=== PATIENT | female | born 1945 | race Caucasian/White ===

== ENCOUNTER → 2016-09-03 | Outpatient (CLI) | payer MEDICARE, OTHER | LOC: GMA 16:58 | PROVIDERS: ATTEND Nurse Practitioner Acute Care | DX: N39.0 Urinary tract infection, site not specified (principal) ==

== ENCOUNTER → 2016-09-16 | Outpatient (CLI) | payer MEDICARE, OTHER ==
--- NOTE | 2016-09-17 10:23 | MAM ---
History: Well woman exam. Personal history of breast cancer status post left mastectomy. Date of exam: 09/16/2016 Services provided: Bilateral full field digital screening mammography. CAD, the images were reviewed with R2 computer aided detection. FINDINGS: Glandular tissue is scattered glandular contour. Comparison with 2012 exam. No dominant mass, architectural distortion or clustered microcalcification. IMPRESSION: Benign exam Recommendation: Routine annual mammography BIRAD CATEGORY: 2 BENIGN Electronically signed by: Hilary Cunha MD 09/17/2016 10:22 AM CDT
== END ==
LOC: MAMMO 08:58
PROVIDERS: ATTEND Nurse Practitioner Acute Care
DX: Z12.31 Encounter for screening mammogram for malignant neoplasm of breast (principal)

== ENCOUNTER → 2016-09-22 | Outpatient (CLI) | payer MEDICARE, OTHER | END | disposition home or self-care (01) | LOC: GMA 11:19 | PROVIDERS: ATTEND Nurse Practitioner Acute Care | DX: Z01.419 Encounter for gynecological examination (general) (routine) without abnormal findings (principal) ==

== ENCOUNTER → 2016-10-07 | Outpatient (CLI) | payer MEDICARE, OTHER | END | disposition home or self-care (01) | LOC: LAB.O 13:46 | PROVIDERS: ATTEND Urology | DX: R31.9 Hematuria, unspecified (principal) ==

== ENCOUNTER → 2016-10-08 | Outpatient (CLI) | payer MEDICARE, OTHER ==
--- NOTE | 2016-10-08 16:44 | CT ---
EXAM DESCRIPTION: Abdomen/Pelvis w/wo Contrast CLINICAL HISTORY: CHRONIC CYSTITIS COMPARISON: December 01, 2007 TECHNIQUE: Pre and postcontrast transaxial CT images of the abdomen and pelvis are obtained using renal stone imaging protocol. This exam was performed according to our departmental dose-optimization program, which includes automated exposure control, adjustment of the mA and/or kV according to patient size and/or use of iterative reconstruction technique . FINDINGS: The visualized lung bases show no acute findings. There is a moderate retrocardiac hiatal hernia. The pancreas, adrenal glands, and gallbladder are unremarkable. There is a small 10 mm hepatic cyst adjacent to the gallbladder fossa. Small hypodensity in the spleen is stable from previous exam. Mild atherosclerotic disease. Kidneys show no abnormal calcifications. No ureteral calcification or obstruction is seen. Urinary bladder is contracted and not well evaluated. Uterus and ovaries are unremarkable. The appendix is not identified. No small bowel obstruction is seen. Scattered diverticuli of the mainly descending to sigmoid colon are seen. There is mild bowel wall thickening and surrounding fat stranding in the left lower quadrant of the descending to sigmoid colon. No free intraperitoneal air or associated drainable fluid collections are seen. Osseous structures show no aggressive bony lesions. IMPRESSION: Colon diverticulosis. There is an area of likely early acute diverticulitis in the descending to sigmoid colon in the left lower quadrant. Consider follow-up imaging after a course of therapy. Urinary bladder is contracted and not well evaluated. Electronically signed by: Asim Mcdonough MD 10/08/2016 4:43 PM CDT
== END | disposition home or self-care (01) ==
LOC: CT 08:51
PROVIDERS: ATTEND Urology
DX: N30.20 Other chronic cystitis without hematuria (principal)

== ENCOUNTER 2016-10-24 11:56 | Emergency (ER) | payer MEDICARE, OTHER ==
[2016-10-24] MEDS ORDERED: ATROPINE 1 MG/10 ML SYG IV ONE (12:00)
[2016-10-24] MEDS ORDERED: SODIUM CHLORIDE 0.9% 1000ML 1,000 ML IVS ONE (12:00)
[2016-10-24] MEDS ORDERED: SODIUM CHLORIDE 0.9% 1000ML 1,000 ML IVS PRN (12:00)
[2016-10-24] MEDS ORDERED: ATROPINE SULFATE 0.5 MG/5 ML SYRINGE IV ONE ×2 (12:07→12:30)
[2016-10-24] MEDS: ATROPINE 1 MG/10 ML SYG IV ONE ×4 (12:10→12:20)
[2016-10-24] MEDS ORDERED: [UNRECOGNIZED DRUG - OTHER] ONE (12:47)
[2016-10-24] MEDS ORDERED: DEXTROSE 5% 250ML 250 ML ONE (12:48)
[2016-10-24] MEDS ORDERED: EPINEPHrine HCL MULTI-DOSE 5 MG in DEXTROSE 5% 250ML 250 ML IV SCH (13:00)
--- NOTE | 2016-10-24 13:01 | ED.PDOC ---
History of Present Illness - General Chief Complaint: Cardiovascular Problem Stated Complaint: Low heart rate Time Seen by Provider: 10/24/16 12:05 Source: patient, RN notes reviewed, Vital Signs reviewed, family Additional Information: Symptoms began about 30 to 45 min prior to arrival. Pt light headed, diaphoretic with chest pain. 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 Per patient and , she may have taken double dose of antihypertensives - diltiazem and metoprolol this am. - History of Present Illness Timing/Duration: 1/2 hour Severity: severe Location: substernal Activities at Onset: none Prior Chest Pain/Cardiac Workup: other - cardiac cath several years ago Improving Factors: nothing Worsening Factors: movement Nitro Today/Relief: no nitro taken today Aspirin Treatment Today: no aspirin today Associated Symptoms: chest pain, diaphoresis, shortness of breath Allergies/Adverse Reactions: Allergies Codeine Allergy (Verified 10/24/16 12:26) Vomitting Promethazine [From Phenergan] Adverse Reaction (Verified 10/24/16 12:26) Other Hallucinations Review of Systems - Review of Systems Constitutional: States: no symptoms reported EENTM: States: no symptoms reported Respiratory: States: see HPI Cardiology: States: see HPI, chest pain Gastrointestinal/Abdominal: States: no symptoms reported Genitourinary: States: no symptoms reported Musculoskeletal: States: no symptoms reported Skin: States: no symptoms reported Neurological: States: no symptoms reported Endocrine: States: no symptoms reported Hematologic/Lymphatic: States: no symptoms reported Past Medical History (General) - Patient Medical History Hx Stroke: No Hx Cardiac Disorders: Yes - high cholesterol Hx Congestive Heart Failure: No Hx Hypertension: Yes Hx Diabetes: No Hx Cancer: Yes - Breast - Vaccination History Hx Influenza Vaccination: Yes - 2015 Hx Pneumococcal Vaccination: Yes - 2013 - Social History Hx Tobacco Use: No - Quit 1990 - Female History Patient is a Female of Child Bearing Age (10 -59 yrs old): No Family Medical History - Family History Mother Living Status: Hx Family Cancer: Yes - mouth and throat at end of life Hx Family;Other: Alzheimer's Physical Exam - Physical Exam General Appearance: Anxious, Ill Appearing Eyes, Ears, Nose, Throat Exam: PERRL/EOMI, normal ENT inspection Neck: non-tender, full range of motion, supple Respiratory: lungs clear, no respiratory distress Cardiovascular/Chest: bradycardia Gastrointestinal/Abdominal: soft Extremity: normal range of motion, non-tender Neurologic: breast surgeon II-XII nml as tested, no motor/sensory deficits, alert, oriented x 3 Skin Exam: normal color Progress - Progress Progress: 10/24/16 13:06 Symtomatic bradycardia with diaphoresis. No response to atropine 0.5 mg IV x 4 and Epi drip 1-2 mcg/min. Pacer pads placed. Pt alert and responsive. - Results/Orders Results/Orders: 10/24/16 12:15 EKG STAT EKG STAT 10/24/16 13:00 EPINEPHrine HCL MULTI-DOSE 5 mg Dextrose 5% 250Ml [D5W 250ml] 250 ml IV PRN Laboratory Results - last 24 hr 10/24/16 10/24/16 12:23 12:28 WBC 10.1 RBC 4.52 Hgb 12.4 Hct 38.4 MCV 85.0 MCH 27.5 MCHC 32.3 L RDW 14.4 Plt Count 284 MPV 9.3 Absolute Neuts (auto) 5.80 Absolute Lymphs (auto) 3.10 Absolute Monos (auto) 0.80 Absolute Eos (auto) 0.30 Absolute Basos (auto) 0.10 Neutrophils % 57.2 Lymphocytes % 30.5 Monocytes % 7.7 Eosinophils % 3.3 Basophils % 1.3 Sodium 135 Potassium 4.6 Chloride 103 Carbon Dioxide 24 Anion Gap 12.6 BUN 12 Creatinine 0.98 BUN/Creatinine Ratio 12.2 Random Glucose 120 H Serum Osmolality 271.1 L Calcium 8.7 Phosphorus 3.5 Magnesium 2.0 Total Bilirubin 0.4 AST 23 ALT 11 Alkaline Phosphatase 68 Creatine Kinase 60 CK-MB (CK-2) 1.0 CK-MB (CK-2) % Not Reportable Troponin I < 0.02 Serum Total Protein 7.7 Albumin 3.8 Globulin 3.9 H Albumin/Globulin Ratio 1.0 L - EKG/XRAY/CT EKG: Delta - junctional rhythm at 38 bpm, persistent Departure - Departure Clinical Impression: Bradycardia Time of Disposition: 13:10 Disposition: Transfer to Hospital Condition: Poor Departure Forms: ED Discharge - Pt. Copy, Patient Portal Self Enrollment Referrals: Mohinder Glynn MD [Primary Care Provider] - 1-5 Days Transfer to Outside Facility - Transfer Information Accepting Provider:: Dr. Lam Accepting Facility: [facility] Reason for Transfer: required specialist not available - cardiology
[2016-10-24 17:05] VITALS: BP 110/54; TEMP 96.9; O2SAT 94
[2016-10-25] MEDS ORDERED: SODIUM CHLORIDE 0.9% 1000ML 1,000 ML IVS PRN (10:20)
== END 2016-10-24 13:10 | disposition short-term general hospital (02) ==
LOC: ER 11:56
DX: R00.1 Bradycardia, unspecified (principal); E78.00 Pure hypercholesterolemia, unspecified; I10 Essential (primary) hypertension; Z85.3 Personal history of malignant neoplasm of breast; Z88.6 Allergy status to analgesic agent; Z88.8 Allergy status to other drugs, medicaments and biological substances; Z87.891 Personal history of nicotine dependence
CPT/HCPCS: 36415; 80053; 82550; 82553; 83735; 84100; 84484; 85025; 93005; J7030; J7060

== ENCOUNTER → 2016-10-26 | Outpatient (CLI) | payer MEDICARE, OTHER | END | disposition home or self-care (01) | LOC: GMAH 15:03 | PROVIDERS: ATTEND Nurse Practitioner Acute Care | DX: N39.0 Urinary tract infection, site not specified (principal) ==

== ENCOUNTER → 2016-11-16 | Outpatient (CLI) | payer MEDICARE, OTHER | END | disposition home or self-care (01) | LOC: GMAH 16:27 | PROVIDERS: ATTEND Family Medicine | DX: I10 Essential (primary) hypertension (principal) ==

== ENCOUNTER → 2016-11-19 | Outpatient (CLI) | payer MEDICARE, OTHER | END | disposition home or self-care (01) | LOC: GMA 12:01 | PROVIDERS: ATTEND Nurse Practitioner Acute Care | DX: N39.0 Urinary tract infection, site not specified (principal) ==

== ENCOUNTER → 2017-02-25 | Outpatient (CLI) | payer MEDICARE, OTHER ==
--- NOTE | 2017-02-26 15:18 | CT ---
EXAM DESCRIPTION: Sinuses CLINICAL HISTORY: 71 years, Female, CHRONIC ETHMOIDAL SINUSITIS COMPARISON: FINDINGS: Axial scans. Reformatted images. This examination was performed according to our departmental dose optimization program, which includes automatic exposure control, adjustment of the MA and/or kV according to the patient size and/or use of iterative reconstruction technique. Extensive mucosal thickening in the left antrum which is more than half opacified. Air-fluid level present as well. Mucosal thickening extends into the area of the ostiomeatal complexes are occluded. There is extensive opacification in the adjacent ethmoid air cells some minimal mucosal thickening right ethmoid sinus. Sphenoid sinus clear. Mucosal thickening in the frontal sinuses particularly on the left. IMPRESSION: Extensive paranasal sinus disease probably on the left side. This involves the left antrum, ethmoid air cells and frontal sinuses. There appears to be an air-fluid level in the left antrum as well suggesting acute process superimposed on chronic sinusitis. The left ostiomeatal complex appears severely occluded by mucosal thickening Electronically signed by: Charles Watkins MD 02/26/2017 3:16 PM CDT
== END | disposition home or self-care (01) ==
LOC: FT 10:24
PROVIDERS: ATTEND Otolaryngology Otolaryngology/Facial Plastic Surgery
DX: J32.2 Chronic ethmoidal sinusitis (principal)

== ENCOUNTER 2017-12-11 11:30 | Emergency (ER) | payer MEDICARE, OTHER ==
[2017-12-11] MEDS ORDERED: NITROGLYCERIN 0.4 MG 25 EA TAB SL ONE ×3 (11:33→11:51)
[2017-12-11 11:53] VITALS: TEMP 97.9
--- NOTE | 2017-12-11 11:55 | ED.PDOC ---
History of Present Illness - General Chief Complaint: Cardiovascular Problem Stated Complaint: Chest pressure, SOB Time Seen by Provider: 12/11/17 11:30 Source: patient - History of Present Illness Initial Comments: CHEST PAIN, ONSET YESTERDAY, PRESSURE TYPE, 4-5/10 W/O RADIATION AND ASSOCIATED WITH MILD SOB. IT SEEMS TO BE MORE SUBSTERNAL . SHE HAS A HX OF A LEFT MASTECTOMY IN 1990 FOR CA OF THE BREAST. Timing/Duration: 24 hours Severity/Quality: moderate, pressure, tightness Location: substernal, central Chest Pain Radiation: no radiation Prior Chest Pain/Cardiac Workup: no prior chest pain, other - SHE EVIDENTLY HAD A HEART CATHETERIZATION YEARS AGO AND THEN IT WAS NORMAL. Improving Factors: nothing Worsening Factors: nothing Nitro Today/Relief: no nitro taken today Aspirin Treatment Today: unknown Associated Symptoms: denies symptoms Allergies/Adverse Reactions: Allergies Codeine Allergy (Verified 10/24/16 12:26) Vomitting Promethazine [From Phenergan] Adverse Reaction (Verified 10/24/16 12:26) Other Hallucinations Home Medications: Ambulatory Orders ALPRAZolam [Xanax] 1 mg PO TID PRN 10/24/16 Celecoxib [Celebrex] 200 mg PO DAILY 10/24/16 Clonidine HCl 0.1 mg PO DAILY 10/24/16 Diltiazem HCl 120 mg PO BID 10/24/16 Estrogens, Conjugated Vaginal [Premarin] 0.625 mg VAG .3XWEEK 10/24/16 Omeprazole 40 mg PO BID 10/24/16 Simvastatin 40 mg PO DAILY 10/24/16 Albuterol Sulfate 0.63 mg IN Q6H PRN 12/11/17 Bifidobacterium Infantis [Align] 4 mg PO DAILY 12/11/17 Ciprofloxacin [Cipro] 250 mg PO DAILY 12/11/17 Metoprolol Tartrate 50 mg PO BEDTIME 12/11/17 Nitroglycerin 0.4 mg Tab [Nitrostat] 0.4 mg SL .Q5M #20 bttl 12/11/17 Pantoprazole Sodium 40 mg PO DAILY 12/11/17 Review of Systems - Review of Systems Constitutional: States: no symptoms reported EENTM: States: no symptoms reported Respiratory: States: short of breath Cardiology: States: chest pain Gastrointestinal/Abdominal: States: no symptoms reported Genitourinary: States: no symptoms reported Musculoskeletal: States: no symptoms reported Skin: States: no symptoms reported Neurological: States: no symptoms reported Endocrine: States: no symptoms reported Hematologic/Lymphatic: States: no symptoms reported Past Medical History (General) - Patient Medical History Hx Stroke: No Hx Cardiac Disorders: Yes - hypercholesterolemia/hyperlipidemia Hx Congestive Heart Failure: No Hx Hypertension: Yes Hx Diabetes: No Hx Gastroesophageal Reflux: Yes - IBS; hiatal hernia Hx Cancer: Yes - L breast 1989 - mastectomy Hx MRSA: No - Vaccination History Hx Influenza Vaccination: Yes - 2016 Hx Pneumococcal Vaccination: Yes - 2016 Immunizations Up to Date: Yes - Prevnar 2016 - Social History Hx Tobacco Use: Yes - Quit 1994 Family Medical History - Family History Mother Living Status: Hx Family Cancer: Yes - mouth and throat at end of life Hx Family;Other: Alzheimer's Physical Exam - Physical Exam General Appearance: Anxious, Well Developed, Well Groomed, Well Hydrated, Well Nourished, Other - MILD DISTRESS Eyes, Ears, Nose, Throat Exam: PERRL/EOMI, normal ENT inspection Neck: non-tender, full range of motion, supple Respiratory: lungs clear, normal breath sounds, no respiratory distress, no accessory muscle use Cardiovascular/Chest: normal peripheral pulses, regular rate, rhythm, no edema, no gallop, no JVD, no murmur Peripheral Pulses: radial,right: 2+, radial,left: 2+ Gastrointestinal/Abdominal: normal bowel sounds, non tender, soft, no organomegaly, no pulsatile mass Rectal Exam: deferred Extremity: normal inspection, no pedal edema, no calf tenderness Neurologic: no motor/sensory deficits, normal mood/affect, oriented x 3 Skin Exam: normal color Lymphatic: no adenopathy Progress - Progress Progress: 12/11/17 14:32 THE PATIENT HAS MAINTAINED PAIN FREE SINCE SHE TOOK A NTG. I HAVE TROPONIN I X 2 AND NEGATIVE. SHE HAD A ETT BY DR. COELHO THREE YEARS AGO AND NORMAL. THE PATIENT WAS GIVEN AN OPTION TO STAY IN THE HOSPITAL FOR OSBERVATION BUT SHE WOULD LIKE TO GO HOME. A PRESCRIPTION FOR NTG WILL BE GIVEN TO THE PATIENT AND WILL DC HOME - Results/Orders Results/Orders: CXR IS NEGATIVE FOR ACUTE PROCESS Departure - Departure Clinical Impression: Chest pain in adult Time of Disposition: 14:35 Disposition: Discharge to Home or Self Care Condition: Good Departure Forms: ED Discharge - Pt. Copy, Patient Portal Self Enrollment Instructions: DI for Chest Pain Referrals: Mohinder Glynn MD [Primary Care Provider] - 1-2 Weeks MILO COELHO MD [Consulting Staff] - 1-2 Weeks Prescriptions: Nitroglycerin 0.4 mg Tab [Nitrostat] 0.4 mg SL .Q5M #20 bttl Home Medications: Ambulatory Orders ALPRAZolam [Xanax] 1 mg PO TID PRN 10/24/16 Celecoxib [Celebrex] 200 mg PO DAILY 10/24/16 Clonidine HCl 0.1 mg PO DAILY 10/24/16 Diltiazem HCl 120 mg PO BID 10/24/16 Estrogens, Conjugated Vaginal [Premarin] 0.625 mg VAG .3XWEEK 10/24/16 Omeprazole 40 mg PO BID 10/24/16 Simvastatin 40 mg PO DAILY 10/24/16 Albuterol Sulfate 0.63 mg IN Q6H PRN 12/11/17 Bifidobacterium Infantis [Align] 4 mg PO DAILY 12/11/17 Ciprofloxacin [Cipro] 250 mg PO DAILY 12/11/17 Metoprolol Tartrate 50 mg PO BEDTIME 12/11/17 Nitroglycerin 0.4 mg Tab [Nitrostat] 0.4 mg SL .Q5M #20 bttl 12/11/17 Pantoprazole Sodium 40 mg PO DAILY 12/11/17
--- NOTE | 2017-12-11 12:03 | RAD ---
Procedure: XR CHEST 1 VIEW Exam Date: 12/11/2017 11:52 AM CDT Ordering Provider: Alexandr Askew Clinical Indication: CHEST PAIN Comparison: None Findings: Lungs are clear. Heart size is within normal limits. No acute osseous abnormality. Surgical clips are seen in the left axillary region. Impression: No acute pulmonary process. Electronically signed by: Anamika Morales MD 12/11/2017 12:01 PM CDT
[2017-12-11] MEDS ORDERED: ASPIRIN (CHEWABLE) 81 MG TAB ONE (12:15)
[2017-12-11] MEDS ORDERED: ASPIRIN (CHEWABLE) 81 MG TAB PO ONE (12:15)
[2017-12-11 13:36] VITALS: BP 163/91; O2SAT 94
== END 2017-12-11 15:12 | disposition home or self-care (01) ==
LOC: ER 11:30
DX: R07.9 Chest pain, unspecified (principal); Z85.3 Personal history of malignant neoplasm of breast; Z90.12 Acquired absence of left breast and nipple; E78.00 Pure hypercholesterolemia, unspecified; E78.5 Hyperlipidemia, unspecified; I10 Essential (primary) hypertension; Z79.899 Other long term (current) drug therapy; Z87.891 Personal history of nicotine dependence

== ENCOUNTER → 2018-03-29 | Outpatient (CLI) | payer MEDICARE, OTHER ==
--- NOTE | 2018-03-29 16:33 | US ---
EXAM DESCRIPTION: Venous,Lower Extremity RT CLINICAL HISTORY: 72 years Female EDEMA COMPARISON: None. TECHNIQUE: Duplex and color Doppler imaging performed to evaluate the extremity deep venous structures. Compression imaging and augmentation imaging performed. FINDINGS: No thrombus is identified in the deep venous structures imaged. There is normal flow, compressibility, and augmentation throughout. IMPRESSION: No DVT is identified. Electronically signed by: Louis Raman 03/29/2018 4:31 PM [employer] [facility]
== END ==
LOC: RAD 16:02
PROVIDERS: ATTEND Family Medicine
DX: R60.0 Localized edema (principal)

== ENCOUNTER → 2018-05-02 | Outpatient (CLI) | payer MEDICARE, OTHER | LOC: GMAH 16:40 | PROVIDERS: ATTEND Family Medicine | DX: E53.8 Deficiency of other specified B group vitamins (principal); F03.90 Unspecified dementia, unspecified severity, without behavioral disturbance, psychotic disturbance, mood disturbance, and anxiety; N39.0 Urinary tract infection, site not specified ==

== ENCOUNTER → 2018-05-03 | Outpatient (CLI) | payer MEDICARE, OTHER ==
--- NOTE | 2018-05-03 11:42 | CT ---
EXAM DESCRIPTION: Head CLINICAL HISTORY: UNSPECIFIED DEMENTIA COMPARISON: Previous CT sinuses February 25, 2017, previous CT head August 27, 2011 TECHNIQUE: Noncontrast head CT was performed with routine protocol. FINDINGS: Normal corral-white matter differentiation. Ventricles and sulci are prominent consistent with age-related cerebral volume loss. Temporal horns of lateral ventricles are not enlarged. Normal proportional thickness of the cortex in the mesial temporal lobes. Low density areas in the white matter are consistent with chronic microvascular ischemic changes. Old lacunar infarcts in the anterior limb right internal capsule and left subinsular white matter. No high density hemorrhage, focal edema or shift of the midline. No sulcal effacement. Normal orbital contents. Basilar cisterns appear clear. Intact calvarium with no fracture or lytic lesion. Normal aeration of tympanic cavities and mastoid air cells. No fluid levels in the paranasal sinuses. Skull base appears intact. Symmetrical internal auditory canals. Coronal and sagittal reformatted images confirm the findings. Partially empty sella is incidentally noted. Compared to previous study February 25, 2017, no change is seen. Compared to head CT August 27, 2011, cerebral volume loss and senescent changes show evidence of mild progression. IMPRESSION: No acute intracranial pathologic process. This exam was performed according to our departmental dose-optimization program, which includes automated exposure control, adjustment of the mA and/or kV according to patient size and/or use of iterative reconstruction technique. Total DLP equals 752.48 mGycm. Electronically signed by: Hero Ernandez MD 05/03/2018 11:41 AM [facility]
== END ==
LOC: CT 10:30
PROVIDERS: ATTEND Family Medicine
DX: F03.90 Unspecified dementia, unspecified severity, without behavioral disturbance, psychotic disturbance, mood disturbance, and anxiety (principal)

== ENCOUNTER → 2018-09-19 | Outpatient (CLI) | payer MEDICARE, OTHER ==
--- NOTE | 2018-09-19 14:18 | RAD ---
EXAM: Pelvis and hip CLINICAL HISTORY: Pain COMPARISON STUDY: None TECHNICAL: AP pelvis FINDINGS: The pelvic ring is intact and negative. Both hips are in anatomic alignment. There is no identifiable fracture. There is no osseous abnormality. There are no significant degenerative changes. Multiple pelvic phleboliths are present. IMPRESSION: Negative pelvis. Electronically signed by: Daljit Multani MD 09/19/2018 2:16 PM CDT
--- NOTE | 2018-09-19 14:20 | RAD ---
EXAM: Knee,Right Complete CLINICAL HISTORY: M25.561, M25.551 COMPARISON STUDY: None. TECHNICAL: 4 views of the right knee. FINDINGS: Views of the knee demonstrate no fracture or dislocation. There is no acute bone abnormality. Mild medial joint space loss is present. There are very small periarticular osteophytes along the medial compartment. There are minimal degenerative changes of the patellofemoral joint. A small joint effusion is present. IMPRESSION: 1. Mild osteoarthritic changes of the right medial compartment and patellofemoral joint. 2. Small right knee joint effusion. Electronically signed by: Daljit Multnai MD 09/19/2018 2:17 PM CDT
== END ==
LOC: RAD 08:43
PROVIDERS: ATTEND Orthopaedic Surgery
DX: M17.11 Unilateral primary osteoarthritis, right knee (principal); M25.551 Pain in right hip

== ENCOUNTER → 2019-03-30 | Outpatient (CLI) | payer MEDICARE, OTHER ==
--- NOTE | 2019-04-03 16:19 | MAM ---
EXAM DESCRIPTION: 3D Screening BILATERAL : Digital Mammography. CLINICAL HISTORY: 73 years Female ANNUAL SCREENING left breast cancer and mastectomy 1990.. Lifetime risk of developing breast cancer (Tyrer-Cuzick model)(%): Calculated due to personal history of breast cancer. COMPARISON: 2-D digital screening right breast 16 September 2016.. TECHNIQUE: Right breast CC and MLO projection full-field images, digital tomosynthesis mammographic technique. Right breast digital 2-D full-field MLO images. CAD not available for tomosynthesis or 2-D images. FINDINGS: Right breast parenchymal density pattern is: Scattered areas of fibroglandular density. No skin thickening or nipple retraction. Benign type calcifications mid right breast. Stable well-defined nodules possibly lymph nodes anterior middle right breast. Medial right skin mole. No new focal, stellate mass or density, focal asymmetry , and no suspicious microcalcifications right breast IMPRESSION: Benign exam. BIRAD CATEGORY: 2 BENIGN FINDINGS. RECOMMENDATIONS: FOLLOW UP: Routine digital right breast mammographic screening, one year interval from March 2019. Written communication explaining the IMPRESSION and follow-up, will be mailed to the patient and referring health care provider. According to the [employer], yearly mammograms are recommended starting at age 40 and continuing as long as a woman is in good health. Any breast change noted on a breast self-exam should be reported promptly to the patient's healthcare provider. Breast MRI is recommended for women with an approximately 20-25% or greater lifetime risk of breast cancer, including women with a strong family history of breast or ovarian cancer and women who have been treated for Hodgkin's disease. A negative mammographic report should not delay tissue diagnosis in patients with significant clinical history or physical findings. Extremely dense breast tissue limits the sensitivity of digital mammography. Electronically signed by: Louis Anthony MD 04/03/2019 4:17 PM [facility]
== END ==
LOC: MAMMO 11:19
PROVIDERS: ATTEND Family Medicine
DX: Z12.31 Encounter for screening mammogram for malignant neoplasm of breast (principal)

== ENCOUNTER → 2019-04-28 | Outpatient (CLI) | payer MEDICARE, OTHER | LOC: GMA MATASK 12:46 | PROVIDERS: ATTEND Family Medicine | DX: R00.2 Palpitations (principal) ==

== ENCOUNTER → 2019-10-09 | Outpatient (CLI) | payer MEDICARE, OTHER | LOC: GMA MATASK 11:25 | PROVIDERS: ATTEND Family Medicine | DX: R63.4 Abnormal weight loss (principal); N39.0 Urinary tract infection, site not specified; R53.82 Chronic fatigue, unspecified; M25.50 Pain in unspecified joint ==

== ENCOUNTER → 2020-04-09 | Outpatient (CLI) | payer MEDICARE, OTHER | LOC: GMA MATASK 14:46 | PROVIDERS: ATTEND Family Medicine | DX: I10 Essential (primary) hypertension (principal) ==

== ENCOUNTER 2020-06-04 13:41 | Inpatient (IN) | payer MEDICARE, OTHER ==
--- NOTE | 2020-06-04 13:43 | HP ---
SUPERVISING PHYSICIAN: Ramez Mendoza MD CHIEF COMPLAINT: Abdominal pain. HISTORY OF PRESENT ILLNESS: This is a 74-year-old female who was directly admitted from Dr. Oliver's office due to diverticular abscess. She apparently has had a fever for about a month along with lower abdominal pain. Yesterday, she had a CT scan of the abdomen and pelvis which showed a diverticular abscess. It also showed constipation in the proximal colon. She also had some labs which showed white count 22,000, hemoglobin 11.4, hematocrit 35.4, platelet count 415, 3% bands. She also had a sodium 137, potassium 3.7, chloride 100, CO2 28, BUN 12, creatinine 0.67, glucose 104, calcium 9.2. Dr. Cornejo was consulted from Dr. Oliver's office as well as Dr. Anthony and the game plan is to percutaneously drain the abscess and place her on empiric antibiotics. She will be placed on Flagyl. At the time of examination, the patient is alert and oriented with no distress. Vital signs are acceptable so far. PAST MEDICAL HISTORY: 1. Hypertension. 2. Hyperlipidemia. 3. Gastroesophageal reflux disease. 4. Low back pain. 5. Depression. 6. Diverticulosis. 7. History of breast cancer and had mastectomy. 8. Pulmonary embolism several years ago. PAST SURGICAL HISTORY: 1. Left mastectomy. 2. section. 3. Colonoscopy which showed polyps and diverticulosis. MEDICATIONS: Please see medication reconciliation list once verified in the computer. ALLERGIES: PROMETHAZINE, CODEINE. FAMILY HISTORY: Father at age 38 of CVA. Mother at age 85 of Alzheimer's. SOCIAL HISTORY: She smoked a pack a day for 20 years and quit in 1994. No alcohol, no illicit drugs. REVIEW OF SYSTEMS: CONSTITUTIONAL: Positive for fever, chills and fatigue. No recent weight loss or weight gain. HEENT: No headaches, vision changes, ear pain, nasal congestion or throat pain. RESPIRATORY: No shortness of breath, cough, hemoptysis or pleuritic chest pain. CARDIOVASCULAR: No chest pain, palpitations or peripheral edema. GASTROINTESTINAL: Positive for abdominal pain. No nausea, vomiting, diarrhea, constipation. GENITOURINARY: No dysuria, frequency or flank pain. ENDOCRINE: No polydipsia, polyuria or polyphagia. No heat or cold intolerance. MUSCULOSKELETAL: Positive for low back pain, but no joint pain, joint swelling or muscle cramps. NEUROLOGIC: No syncope, paresthesias or seizures. PHYSICAL EXAMINATION: VITAL SIGNS: Blood pressure 145/65, heart rate 68, respiratory rate 16, temperature 97.1, oxygen saturation 94%. GENERAL: Ms. Hawley is a 74-year-old female in no active distress. NEUROLOGIC: The patient is alert. LUNGS: Clear to auscultation bilaterally. CARDIOVASCULAR: Regular rate and rhythm. Normal S1, S2. ABDOMEN: Soft. Positive bowel sounds. She does have some tenderness to bilateral lower abdomen. EXTREMITIES: Lower extremities with no edema. Pulses 2+. Capillary refill is less than 2 seconds. LABORATORY: Labs and films are as discussed in history of present illness. IMPRESSION: 1. Diverticulitis with diverticular abscess. 2. Abdominal pain secondary to #1. 3. Possible sepsis secondary to #1. 4. Hypertension. 5. Hyperlipidemia. 6. Depression. PLAN: The patient will be admitted and placed on empiric antibiotics with Levaquin and Flagyl. She is planned for a percutaneous drain of the abscess tomorrow. Dr. Cornejo will be managing that aspect. We will recheck labs today as well including lactate to ensure no significant sepsis. We will hold off on DVT prophylaxis given she is having a procedure tomorrow. We will restart home medications once verified in the computer. #[id number] MTDD
[2020-06-04] MEDS ORDERED: SODIUM CHLORIDE 0.9% (FLUSH) 10 ML SYG IV PRN (14:09)
[2020-06-04] MEDS ORDERED: metroNIDAZOLE IV PREMIX 500MG 100 ML IVPB ONE (14:34)
[2020-06-04] MEDS: IV SET AND CAP CHANGE INJ INJ SCH (14:35)
[2020-06-04] MEDS: metroNIDAZOLE IV PREMIX 500MG 500 MG in PREMIX BAG 1 BAG IVPB SCH ×2 (14:35→22:45)
[2020-06-04] MEDS: LACTATED RINGERS 1,000 ML IVS PRN (16:49)
[2020-06-04] MEDS: levoFLOXacin 750MG IV 750 MG in PREMIX BAG 1 BAG IVPB SCH (17:00)
[2020-06-04] MEDS ORDERED: ONDANSETRON INJ 4 MG/2 ML VIAL ONE (17:33)
[2020-06-04] MEDS ORDERED: ONDANSETRON INJ 4 MG/2 ML VIAL IV PRN (18:22)
--- NOTE | 2020-06-04 18:39 | CONS ---
DATE OF CONSULTATION: 06/04/20 HISTORY OF PRESENT ILLNESS: This is a 74 year-old woman admitted with diverticular abscess. She has been ill for a while. Per the patient's history, she has had some abdominal pain ongoing and other problems. She has been treated recently for a lung infection and a urinary tract infection. Her pain continued and had worsened. Her primary care doctor got a CAT scan that revealed diverticulitis and abscess. She has had diverticulosis in the past but no history of diverticulitis. She had not noticed any particular changes in her stool. The abdominal pain has been progressive and again recently worse. At this point, she stated she has had intermittent fevers. No chills. No headache. No respiratory complaints at this time. No known coronary disease. Abdomen as above. Urine: She has some slight frequency and slight dysuria. Bowels: Again, have been normal. Last BM was this morning. Extremities: No complaints. PAST MEDICAL HISTORY: 1. Hypertension. 2. Denies diabetes. 3. History of pulmonary embolism after a Shannon procedure time back. 4. History of breast cancer and mastectomy on the left. 5. History of pulmonary embolism. PAST SURGICAL HISTORY: 1. Left mastectomy. 2. section. 3. Again the patient mentions specifically lap Shannon. I do not see scars, but mentioning that makes me think she had one. CURRENT MEDICATIONS: Please see list that is for as above. She denies any blood thinners. ALLERGIES: NO ANTIBIOTIC ALLERGIES. SHE HAS AN ALLERGY TO CODEINE FOR THE RECORD. FAMILY HISTORY: Cerebrovascular accident. SOCIAL HISTORY: She quit smoking in 1994. Denies any drug or alcohol abuse. REVIEW OF SYSTEMS: As above. PHYSICAL EXAMINATION: VITAL SIGNS: T max is 100, heart rate 70, blood pressure 151/80. She is on IV fluid and has received her first dose of IV antibiotics. GENERAL: Today, she is conscious, alert and well oriented, on the phone. Appears comfortable. HEENT: Normal. Sclera are anicteric. NECK: Supple. No adenopathy or obvious thyromegaly. CHEST: Clear. Equal bilaterally. HEART: Regular rate and rhythm. ABDOMEN: Soft. It is tender in the left lower quadrant with palpable mass. No diffuse peritonitis. No rebound or guarding away from the infection. BACK: No CVA tenderness. EXTREMITIES: No clubbing, cyanosis or edema. Extremities are warm. LABORATORY: White count is 23, hematocrit 30, platelets 353. Electrolytes: Sodium 133, potassium 3.3, creatinine 0.65. LFTs are normal. Lactic acid 0.9. CAT scan I reviewed earlier. There is evidence of diverticulitis throughout the sigmoid colon with at least 2 abscesses felt to be amenable to drainage. IMPRESSION: A 74 year-old woman with acute diverticulitis with abscess. These abscesses appear amenable to drainage. She does not have evidence of diffuse peritonitis at this time and does not appear seriously ill or septic, so I agree with a drain placement. I discussed with the patient that antibiotics and the drain have a great chance of resolving her problem and she will not need surgery. If, however, it should get worse or persist, then surgery would be recommended which would involve a temporary colostomy without a doubt given the appearance on the CAT scan. #[id number] [facility]
[2020-06-05] MEDS: LACTATED RINGERS 1,000 ML IVS PRN ×2 (04:11→17:50)
[2020-06-05] MEDS ORDERED: ACETAMINOPHEN 325 MG TAB PO PRN (04:22)
[2020-06-05] MEDS: metroNIDAZOLE IV PREMIX 500MG 500 MG in PREMIX BAG 1 BAG IVPB SCH ×3 (06:04→22:33)
[2020-06-05] MEDS ORDERED: MAGNESIUM SULFATE PREMIX 2GM 2 GM in PREMIX BAG 1 BAG IVPB ONE (08:25)
[2020-06-05] MEDS ORDERED: MAGNESIUM SULFATE PREMIX 2GM 50 ML IVPB ONE (09:24)
[2020-06-05] MEDS: levoFLOXacin 750MG IV 750 MG in PREMIX BAG 1 BAG IVPB SCH (17:49)
[2020-06-05] MEDS ORDERED: BIFIDOBACTERIUM INFANTIS 4 MG CAP ONE (19:23)
--- NOTE | 2020-06-05 20:10 | PN ---
SUPERVISING PHYSICIAN: Ramez Mendoza M.D. DATE: 06/05/20 SUBJECTIVE: The patient is lying in bed. Earlier it was reported that there was a mixup in scheduling and she did not get her percutaneous drain done today. She still feels quite weak but has had no other issues. OBJECTIVE: VITAL SIGNS: Temperature 99.2, T max 24 hours is 100.5. Heart rate 102, blood pressure 148/78, respiratory rate 18, O2 saturation 92% on 2 liters nasal cannula. RESPIRATORY: Essentially clear to auscultation bilaterally. CARDIAC: Regular rate and rhythm. ABDOMEN: Soft, nondistended. She does have some tenderness to that left lower quadrant. No rebound or guarding. Bowel sounds are positive. NEUROLOGIC: She is awake, alert and oriented times three. LABORATORY: WBCs are 19,200 with hemoglobin 9.3, hematocrit 28.5. Sodium 134, potassium 3.4, chloride 99, BUN 11, creatinine 0.59, magnesium 1.7. All other labs and films have been reviewed via the EMR. ASSESSMENT: 1. Diverticulitis with diverticular abscess. 2. Abdominal pain secondary to #1. 3. Possible sepsis secondary to #1. 4. Hypertension. 5. Hyperlipidemia. 6. Depression. PLAN: We will continue on her empiric antibiotics with Levaquin and Flagyl. The procedure for percutaneous drain has been scheduled for tomorrow per Dr. Cornejo. She will be NPO at midnight. I have also ordered labs for in the morning. Will hold on DVT prophylaxis until tomorrow. Will monitor and treat as needed. #[id number] [facility]
[2020-06-05] MEDS: BIFIDOBACTERIUM INFANTIS 4 MG CAP PO SCH (20:51)
[2020-06-06] MEDS: LACTATED RINGERS 1,000 ML IVS PRN (05:28)
[2020-06-06] MEDS: metroNIDAZOLE IV PREMIX 500MG 500 MG in PREMIX BAG 1 BAG IVPB SCH ×3 (06:02→22:18)
[2020-06-06] MEDS: BIFIDOBACTERIUM INFANTIS 4 MG CAP PO SCH ×2 (11:50→20:06)
--- NOTE | 2020-06-06 13:25 | PN ---
SUPERVISING PHYSICIAN: Ramez Mendoza M.D. DATE: 06/06/20 SUBJECTIVE: The patient is lying in bed. She is ready to go for her procedure for percutaneous drain per Radiology. She has not run any fever overnight and does feel some better. No nausea or vomiting. OBJECTIVE: VITAL SIGNS: Temperature 98.6, heart rate 101, blood pressure 128/80, respiratory rate 18, O2 saturation 93% on room air. RESPIRATORY: Essentially clear to auscultation bilaterally. CARDIAC: Regular rate and rhythm. NEUROLOGIC: She is awake, alert and oriented times three. LABORATORY: WBCs have improved to 16,500 with hemoglobin 9.4, hematocrit3 29.3. She has a left shift on differential. Electrolytes are within normal limits with the exception of her chlorides is slightly low at 100. Calcium is low at 8.3. All other labs and films have been reviewed via the EMR. ASSESSMENT: 1. Diverticulitis with diverticular abscess. 2. Abdominal pain secondary to #1. 3. Possible sepsis secondary to #1. 4. Hypertension. 5. Hyperlipidemia. 6. Depression. PLAN: We will continue present supportive care including her antibiotics. She is going to Radiology for a CT guided percutaneous drain. Radiology just called me and said they had drained some yellow colored fluid as well as some pink- tinged fluid from that area. I have spoken to Lab and they will consult Dr. De Oliveira for recommended testing. I will also defer to Dr. Cornejo on further workup and discharge plan. I have ordered lab for in the morning. We will continue to monitor and treat as needed. #[id number] [facility]
--- NOTE | 2020-06-06 13:33 | US ---
EXAM DESCRIPTION: Soft Tissue,Abdomen: ULTRASOUND. CLINICAL HISTORY: Diverticulitis left lower quadrant. Fluid collection possible abscess left lower quadrant. COMPARISON: CT scan of the abdomen and pelvis with contrast June 03 TECHNIQUE: Transabdominal scanning: corral-scale mode. Doppler mode. FINDINGS: Scanning left lower quadrant, left adnexa, and upper urinary bladder. A bilobed fluid collection is abutting the superior left urinary bladder and the left uterus. Dimensions are 5.7 x 2.3 x 3.3 cm. Posterior acoustic enhancement. No fluid fluid or fluid solid level. Not vascular. IMPRESSION: Abscess in the left lower quadrant of the abdomen versus other fluid collection. Please refer to abdomen and pelvis CT scan today and CT guided placement of drainage catheter to follow this examination. Electronically signed by: Louis Anthony MD 06/06/2020 1:32 PM [facility]
--- NOTE | 2020-06-06 15:26 | CT ---
EXAM DESCRIPTION: CT Guided Fluid Collection CLINICAL HISTORY: 74 years Female, abdominal abscess. Diverticulosis and diverticulitis. Prior section 40 years ago. No history of gynecological surgery. COMPARISON: CT scan of abdomen and pelvis with IV contrast June 03. TECHNIQUE: Procedure was explained to the patient with risks and benefits. The patient gave verbal and written consent. Patient supine on CT scan table. [employer] Representative scanning of the lower chest and pelvis from the lung bases to the pubic symphysis 5 mm helical axial slices after IV and oral contrast, with anterior skin marker overlying the fluid collection. Axial helical 2.5 mm intervals throughout the procedure. The site for catheter entry was marked utilizing markings system on the abdominal skin. Scans were repeated. Sterile preparation draping. 1% Xylocaine subcutaneous with 25-gauge needle and repeat scans to confirm location, followed by skin jerzy with scalpel. Attempted to insert 15 cm, 4 gauge stiffener with trocar introduced into the abscess site. Unable to penetrate the anterior abdominal wall which is thickened from prior section. A 13-gauge 10 cm Trocar with 14-gauge outer cannula was inserted into the fluid collection. Position confirmed with scans. Prior to introduction of guidewire, 7 mL of clear yellowish fluid was aspirated. There was no specific odor coming from this fluid. An additional 3 cm similar fluid was also aspirated. Additional scans were obtained. Approximately 8 mL of Optiray 320 nonionic IV contrast was injected through the outer cannula, and additional scans were obtained. Approximately 5 mL of the contrast was aspirated and was blood-tinged. No foul-smelling or semisolid tissue was aspirated. The 0.038 guidewire was introduced through the cannula and additional scans obtained. The guidewire was removed. Follow-up scans from the mid abdomen through the pubic symphysis were obtained 15 minutes after the guidewire was removed. The 14-gauge cannula was removed. The incision site was evaluated and a dressing was applied. Patient was transferred back to medical surgical unit with no immediate complications. Total Exam DLP 3503 mGy - cm. This exam was performed according to our departmental CT dose-optimization program which includes automated exposure control, adjustment of the mA and/or kV according to patient size and/or use of iterative reconstruction technique; to reduce radiation dose to as low as reasonably achievable (ALARA). FINDINGS: Lung bases and pleura: Bilateral small pleural effusion new since the prior study. Liver, Stomach, Spleen, Adrenal Glands: 1.5 cm nonenhancing focus in the spleen is stable. Stable small cystlike lesion in the liver abutting the anterior capsule abutting the gallbladder wall. Stable moderate gastric hiatal hernia. Pancreas, Gallbladder, Ducts: Stable dilation of distal common bile duct Kidneys and Ureters: Included left ureter not dilated, with improved visualization, by IV contrast on images taken during the procedure. Mesentery: Fatty stranding, fascial thickening around the region of inflammation distal descending colon proximal sigmoid colon. Fluid collections as previously described in the left adnexa and left lower quadrant abdomen anterior and inferior to the segment of colon inflammation. Aorta: Minimal contrast enhancement with atherosclerotic calcification. Small Bowel: Contains oral contrast with no obstruction or significant air-fluid levels. Terminal Ileum/Cecum: Oral contrast with normal caliber. Minimal fecal material. Colon: Contrast in the ascending colon, transverse colon and proximal descending colon. Diverticula in the proximal descending colon. Again noted is thickening of the mucosa of the distal descending colon and mejia of the distal descending colon with distention and thickening of the serosa and surrounding inflammatory changes in the mesentery. Gas in the lumen and into articular in the distal sigmoid colon and rectum with rectum slightly distended by fecal matter. Fluid collection abutting the small bowel superior and anterior to the inflamed sigmoid colon extending down to the larger fluid collection superior to the dome of the left urinary bladder. Hounsfield density in this fluid collection is +13-+19. Additional lower density material visualized superior and posterior to the abnormal sigmoid segment with Hounsfield density +37- +42 and questionable enhancement. This tissue measures approximately 2.5 x 2.2 cm, on images 59-63 on axial series 2. Pelvic Organs: Anteverted uterus. Question of ovarian tissue with superior calcifications, in the superior right adnexa abutting the right uterine horn, on images 2/63- 69. Left ovarian tissue not seen, but calcifications are seen in the left adnexa on images 2/65 and 70.. Urinary bladder in the midline and left adnexa. Calcifications lower uterine segment and vagina. No fluid in the cul-de-sac. Spine and Bony Pelvis: No interval change. Abdominal Wall/Back Soft Tissues: No interval change. Procedure images: Images with skin marking system, trocar and cannula, after contrast injection, after contrast aspiration, after introduction of guidewire IMPRESSION: 1. CT-guided drainage of fluid collection in the left lower quadrant of the abdomen. Approximately 10 cc yellowish nonturbid fluid. No communication to urinary bladder or bowel demonstrated. Not consistent with abscess. 2. Additional ill-defined collection of soft tissue and questionable enhancement could represent a small abscess versus inflammatory tissue, 2.5 cm maximum diameter. Stable since the prior study. 3. Inflammatory changes in the distal descending colon and proximal sigmoid colon with stable appearance since the prior study. No obstruction. No free air. No complications in the adjacent small bowel or left ureter. Electronically signed by: Louis Anthony MD 06/06/2020 3:24 PM [facility]
[2020-06-06] MEDS: levoFLOXacin 750MG IV 750 MG in PREMIX BAG 1 BAG IVPB SCH (17:33)
[2020-06-07] MEDS: LACTATED RINGERS 1,000 ML IVS PRN (01:14)
[2020-06-07] MEDS: metroNIDAZOLE IV PREMIX 500MG 500 MG in PREMIX BAG 1 BAG IVPB SCH ×3 (06:02→22:07)
[2020-06-07] MEDS: BIFIDOBACTERIUM INFANTIS 4 MG CAP PO SCH ×2 (08:57→20:04)
[2020-06-07] MEDS ORDERED: MAGNESIUM SULFATE PREMIX 2GM 2 GM in PREMIX BAG 1 BAG IVPB ONE (13:42)
[2020-06-07] MEDS ORDERED: POTASSIUM CHLORIDE 20 MEQ TAB PO ONE ×2 (13:42→18:00)
[2020-06-07] MEDS ORDERED: POTASSIUM CHLORIDE 20 MEQ TAB ONE ×2 (13:54→16:25)
[2020-06-07] MEDS ORDERED: MAGNESIUM SULFATE PREMIX 2GM 50 ML IVPB ONE (13:54)
[2020-06-07] MEDS: IV SET AND CAP CHANGE INJ INJ SCH (13:57)
--- NOTE | 2020-06-07 14:15 | PN ---
SUPERVISING PHYSICIAN: Ramez Mendoza M.D. DATE: 06/07/20 SUBJECTIVE: The patient is sitting up in bed. She feels some better, is tolerating her meals without issues. OBJECTIVE: VITAL SIGNS: Temperature 97.4, heart rate 98, blood pressure 154/75, respiratory rate 16, O2 saturation 92% on room air. RESPIRATORY: Essentially clear to auscultation bilaterally. CARDIAC: Regular rate and rhythm. NEUROLOGIC: She is awake, alert and oriented times three. LABORATORY: WBCs are 12,900 with hemoglobin 9.8 hematocrit 30.4. She has a left shift on differential. Sodium 138, potassium 2.9, chloride 100, magnesium 1.7. Abscess wound culture and micro reports are pending. All other labs and films have been reviewed via the EMR. ASSESSMENT: 1. Diverticulitis with diverticular abscess with a percutaneous drain placed by radiology, procedure date #1. 2. Abdominal pain secondary to #1. 3. Possible sepsis secondary to #1. 4. Hypertension. 5. Hyperlipidemia. 6. Depression. 7. Electrolyte imbalance. PLAN: We will continue present supportive care. Operative issues and drain issues will be per Dr. Cornejo. He feels that she should not be discharged until Wednesday. She will be on a full liquid diet, continue on her present antibiotics. I have ordered lab and an abdominal x-ray for in the morning. I have also ordered her some potassium supplementation as well as some magnesium supplementation. We will follow and treat as needed. #[id number] [facility]
[2020-06-07] MEDS: levoFLOXacin 750MG IV 750 MG in PREMIX BAG 1 BAG IVPB SCH (17:23)
[2020-06-08] MEDS: metroNIDAZOLE IV PREMIX 500MG 500 MG in PREMIX BAG 1 BAG IVPB SCH ×3 (05:33→22:43)
--- NOTE | 2020-06-08 08:51 | RAD ---
EXAMINATION: Abdomen Flat Upright CLINICAL HISTORY: abd pain COMPARISON: CT scan done June 03, 2020 FINDINGS: There is a normal bowel gas pattern in the abdomen. There is no evidence for free air or air-fluid levels. There are no abnormal calcifications seen within the abdomen or pelvis. There are no acute bony abnormalities. IMPRESSION: No acute intra-abdominal process seen. Electronically signed by: Timothy Briceño MD 06/08/2020 8:49 AM [facility]
[2020-06-08] MEDS: BIFIDOBACTERIUM INFANTIS 4 MG CAP PO SCH ×2 (08:53→21:17)
[2020-06-08] MEDS ORDERED: METOPROLOL TARTRATE 25 MG TAB ONE (10:09)
[2020-06-08] MEDS ORDERED: diltiaZEM HCL TAB 30 MG TAB ONE (10:12)
[2020-06-08] MEDS: METOPROLOL TARTRATE 50 MG TAB PO SCH (10:18)
[2020-06-08] MEDS: DILTIAZEM HCL 120 MG PO SCH ×2 (10:18→21:17)
--- NOTE | 2020-06-08 14:43 | PN ---
DATE: 06/08/20 DIAGNOSIS: 1. Severe diverticulitis post attempted drain placement. SUBJECTIVE: The patient is not having any complaints. No pain. No nausea or vomiting. She is tolerating a full liquid diet and did have a small bowel movement. OBJECTIVE: VITAL SIGNS: T max 98.7, pulse is in the 60s currently, blood pressure 141/76, saturations 94% on room air. GENERAL: Urine output was 3100 yesterday and again taking full liquids well. Again, she has no complaints. She looks very comfortable. CHEST: Clear. HEART: Regular. ABDOMEN: Soft and non-tender. No rebound and no guarding. We still feel the mass in the left lower quadrant from the severe diverticulitis, but no significant tenderness. Much improved. LABORATORY: White blood cell count is 10, admission was 23. There are no bands. BMP is essentially normal. REPORTS: The abdominal x-ray done shows no acute process. The sample of the fluid we do not have results back yet, but apparently was a clear yellow fluid and non-purulent. ASSESSMENT: 1. Diverticulitis with abscess, attempted drain only got clear fluid. PLAN: The patient has been improving each day. As I discussed with the patient there is still some concern just due to the severity initially and the palpable mass, but so far everything is getting better with antibiotics. I anticipate she should still continue to improve. We would look for possible discharge in 2 days. We will advance her diet slowly today. #[id number] [facility]
[2020-06-08] MEDS: levoFLOXacin 750MG IV 750 MG in PREMIX BAG 1 BAG IVPB SCH (17:34)
--- NOTE | 2020-06-08 20:37 | PN ---
SUPERVISING PHYSICIAN: Ramez Mendoza M.D. DATE: 06/08/20 SUBJECTIVE: The patient is doing fairly well. She is tolerating a liquid diet. She has been ambulating in the hallway without any complications. She has had a couple of bowel movements. No reported nausea or vomiting. OBJECTIVE: VITAL SIGNS: Temperature 97.6, pulse 68, blood pressure 181/89, respirations 18, satting 97% on room air. GENERAL: The patient looks to be resting comfortably after just finishing ambulation. She is not in any distress notably. CHEST: Remains clear to auscultation. HEART: Regular rate and rhythm. ABDOMEN: Soft with some tenderness just noted around the initial percutaneous drainage site, otherwise no pain on palpation. Bowel sounds are active. EXTREMITIES: Without edema. NEUROLOGIC: She is alert and oriented times three. LABORATORY: White count 10,000, hemoglobin 10.2, hematocrit 30.9, platelet count 411,000. Differential does show a continued left shift. Chemistries are showing normal electrolytes today with creatinine 0.53. Liver functions are all within normal limits. RADIOLOGY: Abdominal x-ray this morning per radiology interpretation shows no acute intraabdominal process seen. ASSESSMENT: 1. Diverticulitis with questionable abscess after percutaneous drainage. 2. Abdominal pain, resolving, secondary to #1. 3. Hypertension. 4. Hyperlipidemia. 5. Depression. PLAN: Will continue current plan of care. Will follow the patient along with Dr. Cornejo. I have resumed her home medications since she is now started on a diet. She is saline locked. Will follow the patient with anticipation of hopefully discharging on Wednesday. Until then she will remain on antibiotics with Levaquin and Flagyl. Will continue to replace magnesium as needed and follow her other electrolytes. Until we can transition to outpatient management will continue to monitor and treat as needed. #[id number] [facility]
[2020-06-08] MEDS ORDERED: MELATONIN 3 MG TAB ONE (20:51)
[2020-06-08] MEDS ORDERED: NON-FORMULARY MEDICATION 1 EA MIS (Melatonin [Melatonin] 10 MG) PO SCH (21:00)
[2020-06-08] MEDS: DONEPEZIL HCL 5 MG TAB PO SCH (21:17)
[2020-06-08] MEDS: MELATONIN 3 MG TAB PO SCH (21:18)
[2020-06-08] MEDS ORDERED: cloNIDine HCL 0.1 MG TAB PO ONE (21:20)
[2020-06-08] MEDS: SIMVASTATIN 20 MG TAB PO SCH (21:24)
[2020-06-09] MEDS: metroNIDAZOLE IV PREMIX 500MG 500 MG in PREMIX BAG 1 BAG IVPB SCH ×3 (05:54→21:52)
[2020-06-09] MEDS ORDERED: diltiaZEM HCL TAB 30 MG TAB ONE (07:38)
[2020-06-09] MEDS ORDERED: METOPROLOL TARTRATE 25 MG TAB ONE (07:38)
[2020-06-09] MEDS: BIFIDOBACTERIUM INFANTIS 4 MG CAP PO SCH ×2 (09:09→21:01)
[2020-06-09] MEDS: METOPROLOL TARTRATE 50 MG TAB PO SCH (09:10)
[2020-06-09] MEDS: DILTIAZEM HCL 120 MG PO SCH ×2 (09:10→21:02)
--- NOTE | 2020-06-09 17:33 | PN ---
SUPERVISING PHYSICIAN: Ramez Mendoza M.D. DATE: 06/09/20 SUBJECTIVE: The patient seems to be doing pretty good. She is able to tolerate advancement of her diet to soft food. She is still ambulating. She has had a couple of bowel movements. She says her pain in her abdomen is essentially gone. OBJECTIVE: VITAL SIGNS: Temperature 98, pulse 97, blood pressure 135/79, respirations 18, satting 97% on room air. GENERAL: The patient looks to be resting comfortably after just finishing ambulation. She is not in any distress notably. CHEST: Remains clear to auscultation. HEART: Regular rate and rhythm. ABDOMEN: Soft with some tenderness just noted around the initial percutaneous drainage site, otherwise no pain on palpation. Bowel sounds are active. EXTREMITIES: Without edema. NEUROLOGIC: She is alert and oriented times three. LABORATORY STUDIES: No additional laboratory studies today as her labs have normalized. MICROBIOLOGY: The fluid collected from the questionable wound showed no growth after 2 days. RADIOLOGY: No additional radiographic studies. ASSESSMENT: 1. Diverticulitis with questionable abscess after percutaneous drainage. 2. Abdominal pain, resolving, secondary to #1. 3. Hypertension. 4. Hyperlipidemia. 5. Depression. PLAN: Will continue to follow the patient along with Dr. Cornejo. She has been advanced on her diet. She still continues to ambulate. Her labs have now stabilized. Will hold off on repeating those. Will see if Dr. Cornejo wants to repeat an abdominal x-ray in the morning. I anticipate hopefully being able to discharge her home tomorrow. Until then she will remain on antibiotics with Levaquin and Flagyl. Until we can transition back to outpatient management will continue to monitor and treat as needed. #[id number] [facility]
[2020-06-09] MEDS: levoFLOXacin 750MG IV 750 MG in PREMIX BAG 1 BAG IVPB SCH (17:53)
[2020-06-09] MEDS ORDERED: MELATONIN 3 MG TAB ONE (20:37)
[2020-06-09] MEDS ORDERED: SIMVASTATIN 20 MG TAB ONE (20:37)
[2020-06-09] MEDS ORDERED: DONEPEZIL HCL 5 MG TAB ONE (20:37)
[2020-06-09] MEDS: DONEPEZIL HCL 5 MG TAB PO SCH (21:01)
[2020-06-09] MEDS: SIMVASTATIN 20 MG TAB PO SCH (21:02)
[2020-06-09] MEDS: MELATONIN 3 MG TAB PO SCH (21:02)
[2020-06-10] MEDS: metroNIDAZOLE IV PREMIX 500MG 500 MG in PREMIX BAG 1 BAG IVPB SCH (06:10)
[2020-06-10] MEDS ORDERED: METOPROLOL TARTRATE 25 MG TAB ONE (07:07)
--- NOTE | 2020-06-10 08:23 | PN ---
DATE: 06/09/20 DIAGNOSIS: 1. Severe diverticulitis post attempted drain placement. SUBJECTIVE: The patient feels very well today. No complaints. She is having no pain. OBJECTIVE: VITAL SIGNS: Afebrile. Vital signs are normal. GENERAL: She is tolerating a diet. She has had a bowel movement. GASTROINTESTINAL: Still feel the mass on the left lower quadrant, but overall the abdomens is soft and non-acute. LABORATORY: Labs done yesterday were normal, no followup. MICROBIOLOGY: Wound culture and aspiration shows no growth at 2 days, so the fluid was sterile. ASSESSMENT: 1. Acute diverticulitis with reported abscess post aspiration of sterile fluid. PLAN: The patient is doing well. I anticipate she can go home tomorrow and advance on a low residue diet for now and continue and complete a full 2-week course of antibiotics. #[id number] [facility]
[2020-06-10] MEDS: METOPROLOL TARTRATE 50 MG TAB PO SCH (08:34)
[2020-06-10] MEDS: BIFIDOBACTERIUM INFANTIS 4 MG CAP PO SCH (08:34)
[2020-06-10] MEDS: DILTIAZEM HCL 120 MG PO SCH (08:34)
[2020-06-10 10:19] VITALS: BP 173/85; TEMP 97.8; O2SAT 93
--- NOTE | 2020-06-19 21:38 | DS ---
SUPERVISING PHYSICIAN: Vitor Oliver M.D. ADMISSION DIAGNOSIS: 1. Diverticulitis with diverticular abscess. 2. Abdominal pain secondary to #1. 3. Possible sepsis secondary to #1. 4. Hypertension. 5. Hyperlipidemia. 6. Depression. DISCHARGE DIAGNOSIS: 1. Diverticulitis with questionable abscess after percutaneous drainage. 2. Abdominal pain, resolving, secondary to #1. 3. Hypertension. 4. Hyperlipidemia. 5. Depression. REASON FOR HOSPITALIZATION: This is a 74-year-old female who was directly admitted from Dr. Oliver's office due to diverticular abscess. She apparently has had a fever for about a month along with lower abdominal pain. Yesterday, she had a CT scan of the abdomen and pelvis which showed a diverticular abscess. It also showed constipation in the proximal colon. She also had some labs which showed white count 22,000, hemoglobin 11.4, hematocrit 35.4, platelet count 415, 3% bands. She also had a sodium 137, potassium 3.7, chloride 100, CO2 28, BUN 12, creatinine 0.67, glucose 104, calcium 9.2. Dr. Cornejo was consulted from Dr. Oliver's office as well as Dr. Foster and the game plan is to percutaneously drain the abscess and place her on empiric antibiotics. She will be placed on Flagyl. At the time of examination, the patient is alert and oriented with no distress. Vital signs are acceptable so far. LABORATORY STUDIES: White count initially on admission was 23,200, at discharge was 10,000. Hemoglobin and hematocrit were stable at 10.2, hematocrit 30.9, platelet count 411,000. Differential shows a persistent left shift. Chemistries showed normal electrolytes on discharge with a creatinine of 0.53. Liver functions were all within normal limits. Urinalysis showed just a trace of leukocyte esterase. Microscopic revealed 5 to 10 WBCs, 3 to 5 epithelials, rare bacteria. Aspiration fluid from the abdominal/pelvic lesion per pathology report showed acellular content present, no inflammation or neoplasm. RADIOLOGY: She had a soft tissue ultrasound which showed an abscess in the left lower quadrant of the abdomen versus fluid collection per Dr. Foster's report. She also had a CT guided placement drainage attempt. Please see Dr. Foster's radiology report for that procedure. MEDICAL CONSULTATION: Dr. Cornejo. See Dr. Cornejo's medical consultation. MICROBIOLOGY: Fluid culture from drainage of the abdomen, final culture results showed no growth after 5 days incubation. HOSPITAL COURSE: Ms. Hawley was admitted for treatment of a questionable diverticulitis with abscess. She was started on Flagyl and Levaquin. She did well clinically. She showed good clinical improvement in her labs both that and clinically, and was felt to be stable enough to discharge home to continue with outpatient management. On discharge, vital signs showed she was afebrile at 97.8, pulse 86, blood pressure 173/85, respirations 16, satting 93% on room air. PLAN: Ms. Hawley was discharged to followup with Dr. Cornejo in [address] Oliver on the . She was to continue antibiotics with Flagyl 500 mg every 8 hours until 7 days post discharge and Levaquin 500 mg daily for 7 days. She can advance her diet as tolerated, increase activity as tolerated, and given instructions to return to the Emergency Department if she had any concerning symptoms. Condition on discharge was stable and improved. DISPOSITION: The patient was discharged home. #[id number] [facility]
== END 2020-06-10 13:57 | disposition home or self-care (01) | DRG 392 ==
LOC: MS 13:41
PROVIDERS: ADMIT Nurse Practitioner; ATTEND Nurse Practitioner Family
PROC: 0W9J3ZZ Drainage of Pelvic Cavity, Percutaneous Approach (ICD-10-PCS; principal; 2020-06-06)
DX: K57.20 Diverticulitis of large intestine with perforation and abscess without bleeding (principal); I10 Essential (primary) hypertension; E78.5 Hyperlipidemia, unspecified; F32.9 Major depressive disorder, single episode, unspecified; K21.9 Gastro-esophageal reflux disease without esophagitis; Z86.711 Personal history of pulmonary embolism; Z87.891 Personal history of nicotine dependence